=== PATIENT | male | born 1950 | race Caucasian/White ===

== ENCOUNTER → 2018-10-12 08:27 | Outpatient (CLI) | payer MEDICARE, OTHER, SELFPAY ==
[2018-10-12 10:17] LABS: Alanine Aminotransferase 55 IU/L (21-72); Albumin 4.4 g/dL (3.5-5.0); Albumin Globulin Ratio 1.8 (1.0-2.8); Alkaline Phosphatase 104 U/L (38-126); Aspartate Aminotransferase 40 IU/L (17-59); Bilirubin Total 0.5 mg/dL (0.2-1.3); Bilirubin Unconjugated 0.3 mg/dL (0.0-1.1); Globulin 2.5 g/dL (1.7-4.1); HEMOLYSIS < 15 (0-50); Total Protein 6.9 g/dL (6.3-8.2)
[2018-10-12 15:16] LABS: Hep C Virus Ab w/Reflex Quant NEGATIVE s/c (NEGATIVE)
== END ==
PROVIDERS: PCP Internal Medicine; Visit Provider Internal Medicine
DX: R94.5 Abnormal results of liver function studies (principal)
CPT/HCPCS: 36415; 80076; 86803

== ENCOUNTER → 2019-01-16 14:29 | Outpatient (CLI) | payer MEDICARE, OTHER, SELFPAY ==
--- NOTE | 2019-01-16 | DI.RAD.S_ITS ---
PROCEDURE: XR SHOULDER LT MIN 2V INDICATIONS: LEFT shoulder pain TECHNIQUE: 3 views of the shoulder were acquired. COMPARISON: None. FINDINGS: Bones: No fractures or dislocations. No suspicious bony lesions. Visualized ribs appear intact. There is moderate acromioclavicular and glenohumeral joint degeneration. Soft tissues: No suspicious soft tissue calcifications. IMPRESSION: Moderate degenerative changes. Dictated by: Kevin Saldaña M.D. on 01/16/2019 at 17:24 Approved by: Kevin Saldaña M.D. on 01/16/2019 at 17:25
== END ==
PROVIDERS: Family Provider Internal Medicine; PCP Internal Medicine; Visit Provider Internal Medicine
DX: M25.512 Pain in left shoulder (principal); M19.012 Primary osteoarthritis, left shoulder
CPT/HCPCS: 73030

== ENCOUNTER → 2019-02-09 08:36 | Outpatient (CLI) | payer MEDICARE, OTHER, SELFPAY ==
--- NOTE | 2019-02-09 | DI.RAD.S_ITS ---
PROCEDURE: XR HAND LT 2V INDICATIONS: POLYARTHRITIS TECHNIQUE: 2 views of the hand(s) acquired. COMPARISON: None. FINDINGS: Bones: No fractures or dislocations. Carpal bones are normally aligned. No suspicious bony lesions. Bone mineralization may be decreased. Moderate to severe degenerative changes are present involving the left hand, most pronounced involving the basal joint of the thumb and the distal interphalangeal joint of the index finger. Bony remodeling and prominent lateral osteophytes with associated degenerative cystic change are present. There is a rounded ossific/calcific density identified at the tip of the ulnar styloid process, compatible with old injury. No definitive osseous erosions are appreciated. Soft tissues: No suspicious soft tissue calcifications. IMPRESSION: Moderate to severe degenerative changes of the left hand are most pronounced involving the thumb and index finger as described. Findings are most compatible with osteoarthritis. Dictated by: Dirk Moise M.D. on 02/09/2019 at 11:47 Approved by: Dirk Moise M.D. on 02/09/2019 at 11:48
--- NOTE | 2019-02-09 | DI.RAD.S_ITS ---
PROCEDURE: XR HAND RT 2V INDICATIONS: POLYARTHRITIS TECHNIQUE: 2 views of the hand(s) acquired. COMPARISON: None. FINDINGS: Bones: No fractures or dislocations. Carpal bones are normally aligned. No suspicious bony lesions. Bone mineralization appears to be within normal limits. There are moderate degenerative changes noted involving the metacarpal phalangeal and interphalangeal joints of the hand. The degree of degenerative changes are more prominent involving the distal interphalangeal joints. Additionally, there are degenerative changes involving the basal joint of the thumb. Widening of the scapholunate joint is noted. A small rounded ossific such calcific density is identified along the dorsal aspect of the proximal carpal row on the lateral view, suggesting an old triquetral fracture. No definite osseous erosions are appreciated. Soft tissues: No suspicious soft tissue calcifications. IMPRESSION: 1. Moderate degenerative changes of the right hand are most pronounced involving the distal interphalangeal joints, most suggestive of osteoarthritis. 2. 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 Dictated by: Dirk Moise M.D. on 02/09/2019 at 11:45 Approved by: Dirk Moise M.D. on 02/09/2019 at 11:46
[2019-02-09 09:35] LABS: Erythrocyte Sedimentation Rate 1 MM/HR (0-15)
[2019-02-09 09:37] LABS: B Type Natriuretic Peptide < 100 (<100)
[2019-02-09 09:53] LABS: C-Reactive Protein Quant 0.7 mg/dL (<1.0); Rheumatoid Factor 10.4 IU/mL (<12.0)
[2019-02-11 16:36] LABS: ANA Screen, IFA Negative (Negative)
== END ==
PROVIDERS: PCP Internal Medicine; Visit Provider Internal Medicine
DX: M13.0 Polyarthritis, unspecified (principal)
CPT/HCPCS: 36415; 73120; 83880; 85651; 86038; 86140; 86430

== ENCOUNTER 2019-04-07 09:45 | Outpatient (RCR) | payer MEDICARE, OTHER, SELFPAY ==
--- NOTE | 2019-03-02 14:35 | PT.OIE ---
Current Diagnoses Primary osteoarthritis, left shoulder (03/02/19) Provider Visit Care Team Role Provider Type Ciro Foster MD Attending Provider Physician Primary Care Provider Specialty: Internal Medicine Address: [address] [place] [address], [facility] Email: Physical Therapy Initial Evaluation PT-OP-A Visit Information Start: 03/03/19 09:12 Freq: Status: Active Protocol: Document 03/02/19 14:35 RCC (Rec: 03/03/19 11:00 RCC [email or web address]) Out-Patient Physical Therapy Visit Information Visit Information Visit Type Initial Evaluation Visit Start Time 14:35 Visit Stop Time 15:15 Total Visit Minutes 40 Visit Number 1 Number of RIFLE CASE REPAIRER Visits 0 Evaluation Information Evaluation Date 03/02/19 PT-OP-B Current Condition Start: 03/03/19 09:12 Freq: Status: Active Protocol: Document 03/02/19 14:35 RCC (Rec: 03/03/19 11:00 RCC [email or web address]) Current Condition History of Current Condition Onset Date Winter 2017 Current Complaints L shoulder pain, B hand pain History of Current Condition Pt is a 68 y/o male presenting to physical therapy with a c/ o L shoulder pain, onset in the winter of unknown reason (denies any EMBER). Pt states that overhead activity is challenging, typically his L shoulder is more stiff in the morning compared to the afternoon and evening. He is taking Aleve which does help with pain. His hands also flare up on him occasionally, bilateral pain in the thumb region he states mostly when working with his hands a lot. 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 Radiograph of L shoulder showed moderate AC and GH joint degeneration. 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 L hand howed moderate to severe degenerative changes of the L hand most pronounced at the tumb and index (basal joint of thumb and distal IP joint of index finger), most compatible with OA. Pt would like to address his L shoulder, as this is the most limiting at this time. Treatment Goals Patient/Caregiver Goals decrease pain, improve ROM and overall UE function, be able to play golf Current Functional Impairments (Reported) Functional Limitations- Recreation/ has not played golf due to Hobbies pain in L shoulder PT-OP-C Subjective Start: 03/03/19 09:12 Freq: Status: Active Protocol: Document 03/02/19 14:35 RCC (Rec: 03/03/19 11:00 RCC [email or web address]) OP-PT Subjective Patient Comments Patient Comments Hands are better, no longer flared up with L shoulder has been about the same for months. Patient Reported Progress Same Patient Questionnaires Quick Dash- Upper Extremity Quick Dash UE Score 31.81 Quick Dash UE Impairment 20 to 39% Impaired (Score 20- 39) OP-PT Pain Assessment Location L anterior and superior shoulder Intensity 4 Scale Used Numeric (1 - 10) Description Aching Tightness With Movement Frequency Intermittent Pain Aggravating Factors Lifting Pain Alleviating Factors Medication Home Pain Medication Use Pain Medications Used Yes: OTC Aleve PRN PT-OP-F Manual Assessment Start: 03/03/19 09:12 Freq: Status: Active Protocol: Document 03/02/19 14:35 RCC (Rec: 03/03/19 13:20 [facility] [email or web address]) Manual Assessments Soft Tissue Assessment Soft Tissue Mobility Assessment moderate tone upper trapezius bilaterally; mild tone R teres minor, infraspinatus Joint Mobility Assessment Joint Mobility Assessment hypomobile GH joint on the L with inferior and posterior glides PT-OP-H Neuro Start: 03/03/19 09:12 Freq: Status: Active Protocol: Document 03/02/19 14:35 RCC (Rec: 03/03/19 13:20 RCC [email or web address]) Sensation Evaluation Gross Sensation Gross Sensation WNL Deep Tendon Reflex & Clonus Assessment Deep Tendon Reflex Bilateral Tricep Deep Tendon Reflex 1+ Diminished Bilateral Brachioradialis Deep Tendon Reflex 2+ Normal Bilateral Bicep Deep Tendon Reflex 2+ Normal PT-OP-J Posture/Palpation/Skin Start: 03/03/19 09:12 Freq: Status: Active Protocol: Document 03/02/19 14:35 RCC (Rec: 03/03/19 13:20 RCC [email or web address]) Posture Evaluation Comments Posture Comments moderate rounded shoulders, flattened cervical spine, thoracic kyphosis (mild increase) PT-OP-K Range of Motion Start: 03/03/19 09:12 Freq: Status: Active Protocol: Document 03/02/19 14:35 RCC (Rec: 03/03/19 13:20 RCC [email or web address]) Shoulder Goniometric Range of Motion Shoulder Measured in Degrees Right Active Testing Position Sitting Flexion 160 Abduction 170 External Rotation at 90 degrees 90 Abduction Internal Rotation 67 Left Active Testing Position Sitting Flexion 160 Abduction 160 External Rotation at 90 degrees 80 Abduction Internal Rotation 60 PT-OP-L Special Tests Start: 03/03/19 09:12 Freq: Status: Active Protocol: Document 03/02/19 14:35 RCC (Rec: 03/03/19 13:20 RCC [email or web address]) Special Tests Cervical Spine Special Tests Foraminal Compression Test Results negative B Spurling's Test Test Results negative B Shoulder Special Tests Drop Arm Rotator Cuff Test Results negative B Empty Can Test Results negative B Lift-Off Rotator Cuff Test Results negative B Ibrahim John Impingement Test Results positive L Hornblowers Sign Test Results negative B Load and Shift Test Results negative B PT-OP-M Strength Start: 03/03/19 09:12 Freq: Status: Active Protocol: Document 03/02/19 14:35 RCC (Rec: 03/03/19 13:20 RCC [email or web address]) Shoulder Strength Shoulder Manual Muscle Testing Right Flexion 4+ Good+ Abduction (C5) 4+ Good+ External Rotation 5 Normal Internal Rotation 5 Normal Left Flexion 4 Good Abduction (C5) 4 Good External Rotation 4+ Good+ Internal Rotation 5 Normal Elbow/Forearm Strength Elbow and Forearm Manual Muscle Testing Right Flexion (C6) 5 Normal Extension (C7) 5 Normal Left Flexion (C6) 5 Normal Extension (C7) 5 Normal Hand Director Of Architecture/Pinch Strength Hand Dominance Hand Dominance Right Hand Strength Right Director Of Architecture (lbs) 46 Left Director Of Architecture (lbs) 42 PT-OP-Q Treatments Start: 03/03/19 09:12 Freq: Status: Active Protocol: Document 03/02/19 14:35 RCC (Rec: 03/03/19 13:20 RCC [email or web address]) Therapeutic Exercises Sitting Exercises scapular retraction Sitting Exercise Name scapular retraction with chin tuck Side bilateral Comments 5-10 sec hold for postural positioning Standing Exercises Rows Side bilateral Resistance L1 Reps/Minutes x12 Comments in doorway, tactile cuing for UT inhibition ER Side bilateral Resistance L1 Reps/Minutes x10 Comments tactile cuing PT-OP-T Assessment and Plan Start: 03/03/19 09:12 Freq: Status: Active Protocol: Document 03/02/19 14:35 [facility] (Rec: 03/03/19 13:29 [facility] [email or web address]) Physical Therapy Assessment Rehab Potential Rehabilitation Potential Good Evaluation Complexity Number of Personal Factors/Comorbidities 0 Number of Body Systems Impaired 3 Clinical Presentation at Evaluation Stable Impairments Impairments Functional Activities Pain Posture ROM Soft Tissue Mobility Strength Goals Recreational and work tasks Impairment unable to golf Biodiesel Engineering Manager Goal (LTG) Pt will return to golf and work related tasks with 1/10 or less pain in L shoulder prior to d/c. LTG Duration 8 weeks L shoulder ROM Impairment L shoulder AROM [facility] Goal (LTG) L shoulder AROM abduction to 170 deg, IR to 65 deg, and ER to 90 deg prior to d/c. LTG Duration 8 weeks UE strength Impairment weakness in bilateral shoulders, L>R Short Term Goal (STG) 4+/5 or greater with shoulder flexion, abduction, IR and ER bilaterally with manual muscle testing. STG Duration 4 weeks [facility] Goal (LTG) 5/5 rated strength with shoulder flexion, abduction, IR and ER bilaterally with manual muscle testing. LTG Duration 8 weeks Quick DASH Impairment Quick DASH disability score 31 .81 Short Term Goal (STG) pt will have disability score of 20 or less on the Quick DASH to demonstrate improvements with functional use of LUE. STG Duration 4 weeks Biodiesel Engineering Manager Goal (LTG) pt will have disability score of 12 or less on the Quick DASH to demonstrate improvements with functional use of LUE. LTG Duration 8 weeks Assessment Summary Assessment Pt presents with signs and symptoms consistent with OA of the L shoulder, along with impaired scapulohumeral rhythm and (+) Ibrahim-John testing on the L potentially indicating impingement syndrome. No suspected rotator cuff tear at this time. 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 Pt is a good candidate for physical therapy to progress his ROM, strength, decrease his pain with work and recreational activities, and to promote improved overall tolerance with functional activities in regards to his UEs. Physical Therapy Plan Frequency and Duration Frequency of Treatment 2x/Week Duration of Treatment 8 weeks Plan of Care Start Date 03/02/19 Plan of Care End Date 04/27/19 Therapeutic Interventions Therapeutic Interventions Home Exercise Program Joint Mobilizations Manual Therapy Neuromuscular Re-education Soft Tissue Mobilization Taping Therapeutic Activities Therapeutic Exercises Modalities Cold Pack/Ice Massage Electric Stimulation Hot Packs Ultrasound Next Visit Focus/Plan Next Note Type Treatment Note Next Visit Plan resisted IR, shoulder extension, supine punches and wall [id number] (for serratus training). Shoulder ananya's for abduction/ scaption.
--- NOTE | 2019-03-02 14:35 | PT.OPPOC ---
Current Diagnoses Primary osteoarthritis, left shoulder (03/02/19) Provider Visit Care Team Role Provider Type Ciro Foster MD Attending Provider Physician Primary Care Provider Specialty: Internal Medicine Address: [address] [place] [address], [id number] Email: Plan Of Care PT-OP-T Assessment and Plan Start: 03/03/19 09:12 Freq: Status: Active Protocol: Document 03/02/19 14:35 RCC (Rec: 03/03/19 13:29 RCC [email or web address]) Physical Therapy Assessment Rehab Potential Rehabilitation Potential Good Evaluation Complexity Number of Personal Factors/Comorbidities 0 Number of Body Systems Impaired 3 Clinical Presentation at Evaluation Stable Impairments Impairments Functional Activities Pain Posture ROM Soft Tissue Mobility Strength Goals Recreational and work tasks Impairment unable to golf Acidizer Goal (LTG) Pt will return to golf and work related tasks with 1/10 or less pain in L shoulder prior to d/c. LTG Duration 8 weeks L shoulder ROM Impairment L shoulder AROM [facility] Goal (LTG) L shoulder AROM abduction to 170 deg, IR to 65 deg, and ER to 90 deg prior to d/c. LTG Duration 8 weeks UE strength Impairment weakness in bilateral shoulders, L>R Short Term Goal (STG) 4+/5 or greater with shoulder flexion, abduction, IR and ER bilaterally with manual muscle testing. STG Duration 4 weeks Acidizer Goal (LTG) 5/5 rated strength with shoulder flexion, abduction, IR and ER bilaterally with manual muscle testing. LTG Duration 8 weeks Quick DASH Impairment Quick DASH disability score 31 .81 Short Term Goal (STG) pt will have disability score of 20 or less on the Quick DASH to demonstrate improvements with functional use of LUE. STG Duration 4 weeks Acidizer Goal (LTG) pt will have disability score of 12 or less on the Quick DASH to demonstrate improvements with functional use of LUE. LTG Duration 8 weeks Assessment Summary Assessment Pt presents with signs and symptoms consistent with OA of the L shoulder, along with impaired scapulohumeral rhythm and (+) Ibrahim-John testing on the L potentially indicating impingement syndrome. No suspected rotator cuff tear at this time. 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 Pt is a good candidate for physical therapy to progress his ROM, strength, decrease his pain with work and recreational activities, and to promote improved overall tolerance with functional activities in regards to his UEs. Physical Therapy Plan Frequency and Duration Frequency of Treatment 2x/Week Duration of Treatment 8 weeks Plan of Care Start Date 03/02/19 Plan of Care End Date 04/27/19 Therapeutic Interventions Therapeutic Interventions Home Exercise Program Joint Mobilizations Manual Therapy Neuromuscular Re-education Soft Tissue Mobilization Taping Therapeutic Activities Therapeutic Exercises Modalities Cold Pack/Ice Massage Electric Stimulation Hot Packs Ultrasound Next Visit Focus/Plan Next Note Type Treatment Note Next Visit Plan resisted IR, shoulder extension, supine punches and wall [id number] (for serratus training). Shoulder ananya's for abduction/ scaption. Plan of Care Dates Plan of Care Start Date 03/02/19 Plan of Care End Date 04/27/19 Please Sign and Return: I have reviewed this Plan of Care and certify that the skilled therapy services above are required to meet the patient?s needs. Physician Signature Date Printed Name and Credentials Clinical Instructor Signature Printed Name and Credentials
--- NOTE | 2019-03-07 14:12 | PT.OTN ---
Current Diagnoses Primary osteoarthritis, left shoulder (03/07/19) Physical Therapy Treatment Note PT-OP-A Visit Information Start: 03/03/19 09:12 Freq: Status: Active Protocol: Document 03/07/19 13:57 SA (Rec: 03/07/19 14:10 SA [email or web address]) Out-Patient Physical Therapy Visit Information Visit Information Visit Type Treatment Note Visit Start Time 13:00 Visit Stop Time 13:45 Total Visit Minutes 45 Visit Number 2 Number of SHAREMILKER Visits 1 PT-OP-B Current Condition Start: 03/03/19 09:12 Freq: Status: Active Protocol: Document 03/02/19 14:35 RCC (Rec: 03/03/19 11:00 RCC [email or web address]) Current Condition History of Current Condition Onset Date Winter 2017 Current Complaints L shoulder pain, B hand pain History of Current Condition Pt is a 68 y/o male presenting to physical therapy with a c/ o L shoulder pain, onset in the winter of unknown reason (denies any EMBER). Pt states that overhead activity is challenging, typically his L shoulder is more stiff in the morning compared to the afternoon and evening. He is taking Aleve which does help with pain. His hands also flare up on him occasionally, bilateral pain in the thumb region he states mostly when working with his hands a lot. 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 Radiograph of L shoulder showed moderate AC and GH joint degeneration. 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 L hand howed moderate to severe degenerative changes of the L hand most pronounced at the tumb and index (basal joint of thumb and distal IP joint of index finger), most compatible with OA. Pt would like to address his L shoulder, as this is the most limiting at this time. Treatment Goals Patient/Caregiver Goals decrease pain, improve ROM and overall UE function, be able to play golf Current Functional Impairments (Reported) Functional Limitations- Recreation/ has not played golf due to Hobbies pain in L shoulder PT-OP-C Subjective Start: 03/03/19 09:12 Freq: Status: Active Protocol: Document 03/07/19 14:10 SA (Rec: 03/07/19 14:12 SA [email or web address]) OP-PT Subjective Patient Comments Patient Comments Pt reports continued pain/ achiness but tolerated initial treatment well. Doing 2 exercsies for HEP that was provided last visit and tolerating those well. Patient Reported Progress Same PT-OP-F Manual Assessment Start: 03/03/19 09:12 Freq: Status: Active Protocol: Document 03/02/19 14:35 RCC (Rec: 03/03/19 13:20 RCC [email or web address]) Manual Assessments Soft Tissue Assessment Soft Tissue Mobility Assessment moderate tone upper trapezius bilaterally; mild tone R teres minor, infraspinatus Joint Mobility Assessment Joint Mobility Assessment hypomobile GH joint on the L with inferior and posterior glides PT-OP-H Neuro Start: 03/03/19 09:12 Freq: Status: Active Protocol: Document 03/02/19 14:35 RCC (Rec: 03/03/19 13:20 RCC [email or web address]) Sensation Evaluation Gross Sensation Gross Sensation WNL Deep Tendon Reflex & Clonus Assessment Deep Tendon Reflex Bilateral Tricep Deep Tendon Reflex 1+ Diminished Bilateral Brachioradialis Deep Tendon Reflex 2+ Normal Bilateral Bicep Deep Tendon Reflex 2+ Normal PT-OP-J Posture/Palpation/Skin Start: 03/03/19 09:12 Freq: Status: Active Protocol: Document 03/02/19 14:35 RCC (Rec: 03/03/19 13:20 RCC [email or web address]) Posture Evaluation Comments Posture Comments moderate rounded shoulders, flattened cervical spine, thoracic kyphosis (mild increase) PT-OP-K Range of Motion Start: 03/03/19 09:12 Freq: Status: Active Protocol: Document 03/02/19 14:35 RCC (Rec: 03/03/19 13:20 RCC [email or web address]) Shoulder Goniometric Range of Motion Shoulder Measured in Degrees Right Active Testing Position Sitting Flexion 160 Abduction 170 External Rotation at 90 degrees 90 Abduction Internal Rotation 67 Left Active Testing Position Sitting Flexion 160 Abduction 160 External Rotation at 90 degrees 80 Abduction Internal Rotation 60 PT-OP-L Special Tests Start: 03/03/19 09:12 Freq: Status: Active Protocol: Document 03/02/19 14:35 RCC (Rec: 03/03/19 13:20 RCC [email or web address]) Special Tests Cervical Spine Special Tests Foraminal Compression Test Results negative B Spurling's Test Test Results negative B Shoulder Special Tests Drop Arm Rotator Cuff Test Results negative B Empty Can Test Results negative B Lift-Off Rotator Cuff Test Results negative B Ibrahim John Impingement Test Results positive L Hornblowers Sign Test Results negative B Load and Shift Test Results negative B PT-OP-M Strength Start: 03/03/19 09:12 Freq: Status: Active Protocol: Document 03/02/19 14:35 RCC (Rec: 03/03/19 13:20 RCC [email or web address]) Shoulder Strength Shoulder Manual Muscle Testing Right Flexion 4+ Good+ Abduction (C5) 4+ Good+ External Rotation 5 Normal Internal Rotation 5 Normal Left Flexion 4 Good Abduction (C5) 4 Good External Rotation 4+ Good+ Internal Rotation 5 Normal Elbow/Forearm Strength Elbow and Forearm Manual Muscle Testing Right Flexion (C6) 5 Normal Extension (C7) 5 Normal Left Flexion (C6) 5 Normal Extension (C7) 5 Normal Hand Advertising Columnist/Pinch Strength Hand Dominance Hand Dominance Right Hand Strength Right Advertising Columnist (lbs) 46 Left Advertising Columnist (lbs) 42 PT-OP-Q Treatments Start: 03/03/19 09:12 Freq: Status: Active Protocol: Document 03/07/19 13:57 SA (Rec: 03/07/19 14:10 SA [email or web address]) Therapeutic Exercises Supine Exercises Pec stretch Side bilateral Reps/Minutes 30-60 x 3 Comments manual Serratus punch Side left Resistance 0# Reps/Minutes 15 x Comments tactile cues Sitting Exercises Shldr Pulleys Sitting Exercise Name Scaption/Abduction Side bilateral Reps/Minutes 3 min scapular retraction Sitting Exercise Name scapular retraction with chin tuck Side bilateral Comments 5-10 sec hold for postural positioning Standing Exercises Shld EXT Side left Resistance TB LV 2 Reps/Minutes 20x Postural wall stretch Side bilateral Reps/Minutes 15 x 3 Scapular wall/ball roll Side left Reps/Minutes 2 min Comments tactile cues Rows Side bilateral Resistance TB LV 2 Reps/Minutes 20x Comments in doorway, tactile cuing for UT inhibition ER Side bilateral Resistance TB LV 2 Reps/Minutes 20x Comments tactile cuing Manual Therapy Treatment Soft Tissue Mobilization UT/levator/pec Body Location Left Mobilization Type Myofascial Release Rolling Sustained Pressure Intensity/Depth Moderate Body Position Hooklying Comments manual B pec stretching PT-OP-R Modalities Start: 03/03/19 09:12 Freq: Status: Active Protocol: Document 03/07/19 14:10 SA (Rec: 03/07/19 14:10 SA [email or web address]) Hot Pack/Cold Pack Treatment Hot Pack Location L shoulder Patient Position Hooklying Treatment Duration (minutes) 10 Patient Tolerance Good PT-OP-T Assessment and Plan Start: 03/03/19 09:12 Freq: Status: Active Protocol: Document 03/07/19 13:57 SA (Rec: 03/07/19 14:10 SA [email or web address]) Physical Therapy Assessment Assessment Summary Assessment Focused on scapular strengthening and postural correction with STM to UTs/ levator/pecs to decrease tightness and compensatory movement pattern. Postural wall stretch given to add to HEP. Physical Therapy Plan Next Visit Focus/Plan Next Note Type Treatment Note Next Visit Plan resisted IR, shoulder extension, supine punches and wall [id number] (for serratus training). Shoulder ananya's for abduction/ scaption.
--- NOTE | 2019-03-10 10:30 | PT.OTN ---
Current Diagnoses Primary osteoarthritis, left shoulder (03/10/19) Physical Therapy Treatment Note PT-OP-A Visit Information Start: 03/03/19 09:12 Freq: Status: Active Protocol: Document 03/10/19 10:30 [facility] (Rec: 03/10/19 13:17 [facility] [email or web address]) Out-Patient Physical Therapy Visit Information Visit Information Visit Type Treatment Note Visit Start Time 10:30 Visit Stop Time 11:13 Total Visit Minutes 43 Visit Number 3 Number of GROUP DIRECTOR EXPERIENCE Visits 0 Evaluation Information Evaluation Date 03/02/19 PT-OP-B Current Condition Start: 03/03/19 09:12 Freq: Status: Active Protocol: Document 03/02/19 14:35 [facility] (Rec: 03/03/19 11:00 [facility] [email or web address]) Current Condition History of Current Condition Onset Date Winter 2017 Current Complaints L shoulder pain, B hand pain History of Current Condition Pt is a 68 y/o male presenting to physical therapy with a c/ o L shoulder pain, onset in the winter of unknown reason (denies any EMBER). Pt states that overhead activity is challenging, typically his L shoulder is more stiff in the morning compared to the afternoon and evening. He is taking Aleve which does help with pain. His hands also flare up on him occasionally, bilateral pain in the thumb region he states mostly when working with his hands a lot. 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 Radiograph of L shoulder showed moderate AC and GH joint degeneration. 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 L hand howed moderate to severe degenerative changes of the L hand most pronounced at the tumb and index (basal joint of thumb and distal IP joint of index finger), most compatible with OA. Pt would like to address his L shoulder, as this is the most limiting at this time. Treatment Goals Patient/Caregiver Goals decrease pain, improve ROM and overall UE function, be able to play golf Current Functional Impairments (Reported) Functional Limitations- Recreation/ has not played golf due to Hobbies pain in L shoulder PT-OP-C Subjective Start: 03/03/19 09:12 Freq: Status: Active Protocol: Document 03/10/19 10:30 RCC (Rec: 03/10/19 13:17 [facility] [email or web address]) OP-PT Subjective Patient Comments Patient Comments Pt with no new complaints. He is doing his HEP as intended. PT-OP-F Manual Assessment Start: 03/03/19 09:12 Freq: Status: Active Protocol: Document 03/02/19 14:35 [facility] (Rec: 03/03/19 13:20 [facility] [email or web address]) Manual Assessments Soft Tissue Assessment Soft Tissue Mobility Assessment moderate tone upper trapezius bilaterally; mild tone R teres minor, infraspinatus Joint Mobility Assessment Joint Mobility Assessment hypomobile GH joint on the L with inferior and posterior glides PT-OP-H Neuro Start: 03/03/19 09:12 Freq: Status: Active Protocol: Document 03/02/19 14:35 [facility] (Rec: 03/03/19 13:20 [facility] [email or web address]) Sensation Evaluation Gross Sensation Gross Sensation WNL Deep Tendon Reflex & Clonus Assessment Deep Tendon Reflex Bilateral Tricep Deep Tendon Reflex 1+ Diminished Bilateral Brachioradialis Deep Tendon Reflex 2+ Normal Bilateral Bicep Deep Tendon Reflex 2+ Normal PT-OP-J Posture/Palpation/Skin Start: 03/03/19 09:12 Freq: Status: Active Protocol: Document 03/02/19 14:35 [facility] (Rec: 03/03/19 13:20 [facility] [email or web address]) Posture Evaluation Comments Posture Comments moderate rounded shoulders, flattened cervical spine, thoracic kyphosis (mild increase) PT-OP-K Range of Motion Start: 03/03/19 09:12 Freq: Status: Active Protocol: Document 03/02/19 14:35 [facility] (Rec: 03/03/19 13:20 [facility] [email or web address]) Shoulder Goniometric Range of Motion Shoulder Measured in Degrees Right Active Testing Position Sitting Flexion 160 Abduction 170 External Rotation at 90 degrees 90 Abduction Internal Rotation 67 Left Active Testing Position Sitting Flexion 160 Abduction 160 External Rotation at 90 degrees 80 Abduction Internal Rotation 60 PT-OP-L Special Tests Start: 03/03/19 09:12 Freq: Status: Active Protocol: Document 03/02/19 14:35 [facility] (Rec: 03/03/19 13:20 [facility] [email or web address]) Special Tests Cervical Spine Special Tests Foraminal Compression Test Results negative B Spurling's Test Test Results negative B Shoulder Special Tests Drop Arm Rotator Cuff Test Results negative B Empty Can Test Results negative B Lift-Off Rotator Cuff Test Results negative B Ibrahim John Impingement Test Results positive L Hornblowers Sign Test Results negative B Load and Shift Test Results negative B PT-OP-M Strength Start: 03/03/19 09:12 Freq: Status: Active Protocol: Document 03/02/19 14:35 [facility] (Rec: 03/03/19 13:20 [facility] [email or web address]) Shoulder Strength Shoulder Manual Muscle Testing Right Flexion 4+ Good+ Abduction (C5) 4+ Good+ External Rotation 5 Normal Internal Rotation 5 Normal Left Flexion 4 Good Abduction (C5) 4 Good External Rotation 4+ Good+ Internal Rotation 5 Normal Elbow/Forearm Strength Elbow and Forearm Manual Muscle Testing Right Flexion (C6) 5 Normal Extension (C7) 5 Normal Left Flexion (C6) 5 Normal Extension (C7) 5 Normal Hand Medical Office Assistant/Pinch Strength Hand Dominance Hand Dominance Right Hand Strength Right Medical Office Assistant (lbs) 46 Left Medical Office Assistant (lbs) 42 PT-OP-Q Treatments Start: 03/03/19 09:12 Freq: Status: Active Protocol: Document 03/10/19 10:30 RCC (Rec: 03/10/19 13:17 [facility] [email or web address]) Therapeutic Exercises Supine Exercises Serratus punch Side left Resistance 3# Reps/Minutes 15 x Comments tactile cues Sidelying Exercises shoulder abduction Side left Reps/Minutes x10 Comments with manual assist for scapular upward rotation Standing Exercises bent forward rows and extension Standing Exercise Name shoulder extension and rows in bent over position leaning R hand on table Side left Reps/Minutes x10 push up plus Side bilateral Reps/Minutes x10 Manual Therapy Treatment Soft Tissue Mobilization UT/levator/pec Body Location Left Mobilization Type Myofascial Release Rolling Sustained Pressure Intensity/Depth Moderate Body Position Hooklying Comments manual B pec stretching Joint Mobilizations ST Direction superior, lateral Grade III Body Position Sidelying Reps/Duration 5 min GH Direction posterior and inferior Grade III Body Position Hooklying Reps/Duration 6 min Taping L shoulder Type of Tape kinesiotape Skin Inspection intact Comments shoulder impingement protocol PT-OP-R Modalities Start: 03/03/19 09:12 Freq: Status: Active Protocol: Document 03/07/19 14:10 SA (Rec: 03/07/19 14:10 SA [email or web address]) Hot Pack/Cold Pack Treatment Hot Pack Location L shoulder Patient Position Hooklying Treatment Duration (minutes) 10 Patient Tolerance Good PT-OP-T Assessment and Plan Start: 03/03/19 09:12 Freq: Status: Active Protocol: Document 03/10/19 10:30 RCC (Rec: 03/10/19 13:17 RCC [email or web address]) Physical Therapy Assessment Assessment Summary Assessment Pt with slight discomfort with sidelying shoulder abduction on the L, but pain absent with manual facilitation of scapula. He tolerated serratus strengthening without pain. Physical Therapy Plan Frequency and Duration Frequency of Treatment 2x/Week Duration of Treatment 8 weeks Plan of Care Start Date 03/02/19 Plan of Care End Date 04/27/19 Next Visit Focus/Plan Next Note Type Treatment Note Next Visit Plan body blade, resisted IR
--- NOTE | 2019-03-15 16:05 | PT.OTN ---
Current Diagnoses Primary osteoarthritis, left shoulder (03/15/19) Physical Therapy Treatment Note PT-OP-A Visit Information Start: 03/03/19 09:12 Freq: Status: Active Protocol: Document 03/15/19 16:05 RCC (Rec: 03/15/19 17:58 [facility] [email or web address]) Out-Patient Physical Therapy Visit Information Visit Information Visit Type Treatment Note Visit Start Time 16:05 Visit Stop Time 16:45 Total Visit Minutes 40 Visit Number 4 Number of HOG BUYER Visits 0 Evaluation Information Evaluation Date 03/02/19 PT-OP-B Current Condition Start: 03/03/19 09:12 Freq: Status: Active Protocol: Document 03/02/19 14:35 RCC (Rec: 03/03/19 11:00 RCC [email or web address]) Current Condition History of Current Condition Onset Date Winter 2017 Current Complaints L shoulder pain, B hand pain History of Current Condition Pt is a 68 y/o male presenting to physical therapy with a c/ o L shoulder pain, onset in the winter of unknown reason (denies any EMBER). Pt states that overhead activity is challenging, typically his L shoulder is more stiff in the morning compared to the afternoon and evening. He is taking Aleve which does help with pain. His hands also flare up on him occasionally, bilateral pain in the thumb region he states mostly when working with his hands a lot. 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 Radiograph of L shoulder showed moderate AC and GH joint degeneration. 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 L hand howed moderate to severe degenerative changes of the L hand most pronounced at the tumb and index (basal joint of thumb and distal IP joint of index finger), most compatible with OA. Pt would like to address his L shoulder, as this is the most limiting at this time. Treatment Goals Patient/Caregiver Goals decrease pain, improve ROM and overall UE function, be able to play golf Current Functional Impairments (Reported) Functional Limitations- Recreation/ has not played golf due to Hobbies pain in L shoulder PT-OP-C Subjective Start: 03/03/19 09:12 Freq: Status: Active Protocol: Document 03/15/19 16:05 [facility] (Rec: 03/15/19 17:58 [facility] [email or web address]) OP-PT Subjective Patient Comments Patient Comments Pt reports that the kinesiotape appears to have helped, he was sleeping better the past week and less pain with activities. PT-OP-F Manual Assessment Start: 03/03/19 09:12 Freq: Status: Active Protocol: Document 03/02/19 14:35 [facility] (Rec: 03/03/19 13:20 [facility] [email or web address]) Manual Assessments Soft Tissue Assessment Soft Tissue Mobility Assessment moderate tone upper trapezius bilaterally; mild tone R teres minor, infraspinatus Joint Mobility Assessment Joint Mobility Assessment hypomobile GH joint on the L with inferior and posterior glides PT-OP-H Neuro Start: 03/03/19 09:12 Freq: Status: Active Protocol: Document 03/02/19 14:35 [facility] (Rec: 03/03/19 13:20 [facility] [email or web address]) Sensation Evaluation Gross Sensation Gross Sensation WNL Deep Tendon Reflex & Clonus Assessment Deep Tendon Reflex Bilateral Tricep Deep Tendon Reflex 1+ Diminished Bilateral Brachioradialis Deep Tendon Reflex 2+ Normal Bilateral Bicep Deep Tendon Reflex 2+ Normal PT-OP-J Posture/Palpation/Skin Start: 03/03/19 09:12 Freq: Status: Active Protocol: Document 03/02/19 14:35 [facility] (Rec: 03/03/19 13:20 [facility] [email or web address]) Posture Evaluation Comments Posture Comments moderate rounded shoulders, flattened cervical spine, thoracic kyphosis (mild increase) PT-OP-K Range of Motion Start: 03/03/19 09:12 Freq: Status: Active Protocol: Document 03/02/19 14:35 [facility] (Rec: 03/03/19 13:20 [facility] [email or web address]) Shoulder Goniometric Range of Motion Shoulder Measured in Degrees Right Active Testing Position Sitting Flexion 160 Abduction 170 External Rotation at 90 degrees 90 Abduction Internal Rotation 67 Left Active Testing Position Sitting Flexion 160 Abduction 160 External Rotation at 90 degrees 80 Abduction Internal Rotation 60 PT-OP-L Special Tests Start: 03/03/19 09:12 Freq: Status: Active Protocol: Document 03/02/19 14:35 [facility] (Rec: 03/03/19 13:20 [facility] [email or web address]) Special Tests Cervical Spine Special Tests Foraminal Compression Test Results negative B Spurling's Test Test Results negative B Shoulder Special Tests Drop Arm Rotator Cuff Test Results negative B Empty Can Test Results negative B Lift-Off Rotator Cuff Test Results negative B Ibrahim John Impingement Test Results positive L Hornblowers Sign Test Results negative B Load and Shift Test Results negative B PT-OP-M Strength Start: 03/03/19 09:12 Freq: Status: Active Protocol: Document 03/02/19 14:35 [facility] (Rec: 03/03/19 13:20 [facility] [email or web address]) Shoulder Strength Shoulder Manual Muscle Testing Right Flexion 4+ Good+ Abduction (C5) 4+ Good+ External Rotation 5 Normal Internal Rotation 5 Normal Left Flexion 4 Good Abduction (C5) 4 Good External Rotation 4+ Good+ Internal Rotation 5 Normal Elbow/Forearm Strength Elbow and Forearm Manual Muscle Testing Right Flexion (C6) 5 Normal Extension (C7) 5 Normal Left Flexion (C6) 5 Normal Extension (C7) 5 Normal Hand Web Content Specialist/Pinch Strength Hand Dominance Hand Dominance Right Hand Strength Right Web Content Specialist (lbs) 46 Left Web Content Specialist (lbs) 42 PT-OP-Q Treatments Start: 03/03/19 09:12 Freq: Status: Active Protocol: Document 03/15/19 16:05 [facility] (Rec: 03/15/19 17:58 [facility] [email or web address]) Therapeutic Exercises Standing Exercises body blade Standing Exercise Name yellow Side left Equipment Used body blade Reps/Minutes 5 min Comments IR/ER, abd/add with arm @ side IR Side left Resistance L2 Reps/Minutes x15 Manual Therapy Treatment Soft Tissue Mobilization UT/levator/pec Body Location Left Mobilization Type Myofascial Release Rolling Sustained Pressure Intensity/Depth Moderate Body Position Hooklying Comments manual B pec stretching Joint Mobilizations ST Direction superior, lateral Grade III Body Position Sidelying Reps/Duration 4 min GH Direction posterior and inferior Grade III Body Position Hooklying Reps/Duration 6 min Taping L shoulder Type of Tape kinesiotape Skin Inspection intact Comments shoulder impingement protocol Manual Techniques PROM Type PROM all planes L shoulder Body Position Supine Reps/Duration x8 min PT-OP-T Assessment and Plan Start: 03/03/19 09:12 Freq: Status: Active Protocol: Document 03/15/19 16:05 [facility] (Rec: 03/15/19 17:58 [facility] [email or web address]) Physical Therapy Assessment Assessment Summary Assessment Pt tolerated resisted IR without c/o pain, but does fatigue with this activity. Pt with improved ability to relax with ST manual therapy, improving the ability to manipulate the scapula. Physical Therapy Plan Frequency and Duration Frequency of Treatment 2x/Week Duration of Treatment 8 weeks Plan of Care Start Date 03/02/19 Plan of Care End Date 04/27/19 Next Visit Focus/Plan Next Note Type Treatment Note Next Visit Plan assess tolerance to SL abduction; education on self Kinesiotape.
--- NOTE | 2019-03-23 11:30 | PT.OTN ---
Current Diagnoses Primary osteoarthritis, left shoulder (03/23/19) Physical Therapy Treatment Note PT-OP-A Visit Information Start: 03/03/19 09:12 Freq: Status: Active Protocol: Document 03/23/19 11:30 [facility] (Rec: 03/23/19 12:24 [facility] [email or web address]) Out-Patient Physical Therapy Visit Information Visit Information Visit Type Treatment Note Visit Start Time 11:30 Visit Stop Time 12:15 Total Visit Minutes 45 Visit Number 5 Number of EQUIPMENT MAINT TECH Visits 0 Evaluation Information Evaluation Date 03/02/19 PT-OP-B Current Condition Start: 03/03/19 09:12 Freq: Status: Active Protocol: Document 03/02/19 14:35 RCC (Rec: 03/03/19 11:00 RCC [email or web address]) Current Condition History of Current Condition Onset Date Winter 2017 Current Complaints L shoulder pain, B hand pain History of Current Condition Pt is a 68 y/o male presenting to physical therapy with a c/ o L shoulder pain, onset in the winter of unknown reason (denies any EMBER). Pt states that overhead activity is challenging, typically his L shoulder is more stiff in the morning compared to the afternoon and evening. He is taking Aleve which does help with pain. His hands also flare up on him occasionally, bilateral pain in the thumb region he states mostly when working with his hands a lot. 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 Radiograph of L shoulder showed moderate AC and GH joint degeneration. 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 L hand howed moderate to severe degenerative changes of the L hand most pronounced at the tumb and index (basal joint of thumb and distal IP joint of index finger), most compatible with OA. Pt would like to address his L shoulder, as this is the most limiting at this time. Treatment Goals Patient/Caregiver Goals decrease pain, improve ROM and overall UE function, be able to play golf Current Functional Impairments (Reported) Functional Limitations- Recreation/ has not played golf due to Hobbies pain in L shoulder PT-OP-C Subjective Start: 03/03/19 09:12 Freq: Status: Active Protocol: Document 03/23/19 11:30 [facility] (Rec: 03/23/19 12:24 [facility] [email or web address]) OP-PT Subjective Patient Comments Patient Comments Pt has noticed that his L shoulder does not hurt as much throughout the day with normal lifting of his arm. PT-OP-F Manual Assessment Start: 03/03/19 09:12 Freq: Status: Active Protocol: Document 03/02/19 14:35 [facility] (Rec: 03/03/19 13:20 [facility] [email or web address]) Manual Assessments Soft Tissue Assessment Soft Tissue Mobility Assessment moderate tone upper trapezius bilaterally; mild tone R teres minor, infraspinatus Joint Mobility Assessment Joint Mobility Assessment hypomobile GH joint on the L with inferior and posterior glides PT-OP-H Neuro Start: 03/03/19 09:12 Freq: Status: Active Protocol: Document 03/02/19 14:35 RCC (Rec: 03/03/19 13:20 RCC [email or web address]) Sensation Evaluation Gross Sensation Gross Sensation WNL Deep Tendon Reflex & Clonus Assessment Deep Tendon Reflex Bilateral Tricep Deep Tendon Reflex 1+ Diminished Bilateral Brachioradialis Deep Tendon Reflex 2+ Normal Bilateral Bicep Deep Tendon Reflex 2+ Normal PT-OP-J Posture/Palpation/Skin Start: 03/03/19 09:12 Freq: Status: Active Protocol: Document 03/02/19 14:35 [facility] (Rec: 03/03/19 13:20 RCC [email or web address]) Posture Evaluation Comments Posture Comments moderate rounded shoulders, flattened cervical spine, thoracic kyphosis (mild increase) PT-OP-K Range of Motion Start: 03/03/19 09:12 Freq: Status: Active Protocol: Document 03/02/19 14:35 [facility] (Rec: 03/03/19 13:20 [facility] [email or web address]) Shoulder Goniometric Range of Motion Shoulder Measured in Degrees Right Active Testing Position Sitting Flexion 160 Abduction 170 External Rotation at 90 degrees 90 Abduction Internal Rotation 67 Left Active Testing Position Sitting Flexion 160 Abduction 160 External Rotation at 90 degrees 80 Abduction Internal Rotation 60 PT-OP-L Special Tests Start: 03/03/19 09:12 Freq: Status: Active Protocol: Document 03/02/19 14:35 RCC (Rec: 03/03/19 13:20 RCC [email or web address]) Special Tests Cervical Spine Special Tests Foraminal Compression Test Results negative B Spurling's Test Test Results negative B Shoulder Special Tests Drop Arm Rotator Cuff Test Results negative B Empty Can Test Results negative B Lift-Off Rotator Cuff Test Results negative B Ibrahim John Impingement Test Results positive L Hornblowers Sign Test Results negative B Load and Shift Test Results negative B PT-OP-M Strength Start: 03/03/19 09:12 Freq: Status: Active Protocol: Document 03/02/19 14:35 [facility] (Rec: 03/03/19 13:20 RCC [email or web address]) Shoulder Strength Shoulder Manual Muscle Testing Right Flexion 4+ Good+ Abduction (C5) 4+ Good+ External Rotation 5 Normal Internal Rotation 5 Normal Left Flexion 4 Good Abduction (C5) 4 Good External Rotation 4+ Good+ Internal Rotation 5 Normal Elbow/Forearm Strength Elbow and Forearm Manual Muscle Testing Right Flexion (C6) 5 Normal Extension (C7) 5 Normal Left Flexion (C6) 5 Normal Extension (C7) 5 Normal Hand Pulp Grinder/Pinch Strength Hand Dominance Hand Dominance Right Hand Strength Right Pulp Grinder (lbs) 46 Left Pulp Grinder (lbs) 42 PT-OP-Q Treatments Start: 03/03/19 09:12 Freq: Status: Active Protocol: Document 03/23/19 11:30 [facility] (Rec: 03/23/19 12:24 [facility] [email or web address]) Therapeutic Exercises Sidelying Exercises shoulder abduction Side left Reps/Minutes x10 Standing Exercises body blade Standing Exercise Name yellow Side left Equipment Used body blade Reps/Minutes 5 min Comments IR/ER, abd/add with arm @ side IR Side left Resistance L2 Reps/Minutes x20 Rows Side bilateral Resistance TB LV 2 Reps/Minutes 20x ER Side bilateral Resistance TB LV 2 Reps/Minutes 20x Comments tactile cuing Manual Therapy Treatment Soft Tissue Mobilization UT/levator/pec Body Location Left Mobilization Type Myofascial Release Rolling Sustained Pressure Intensity/Depth Moderate Body Position Hooklying Comments manual B pec stretching Joint Mobilizations ST Direction superior, lateral Grade III Body Position Sidelying Reps/Duration 6 min GH Direction posterior and inferior Grade III Body Position Hooklying Reps/Duration 6 min Taping L shoulder Type of Tape kinesiotape Skin Inspection intact Comments shoulder impingement protocol Manual Techniques PROM Type PROM all planes L shoulder Body Position Supine Reps/Duration x8 min PT-OP-R Modalities Start: 03/03/19 09:12 Freq: Status: Active Protocol: Document 03/07/19 14:10 SA (Rec: 03/07/19 14:10 SA [email or web address]) Hot Pack/Cold Pack Treatment Hot Pack Location L shoulder Patient Position Hooklying Treatment Duration (minutes) 10 Patient Tolerance Good PT-OP-T Assessment and Plan Start: 03/03/19 09:12 Freq: Status: Active Protocol: Document 03/23/19 11:30 [facility] (Rec: 03/23/19 12:24 RCC [email or web address]) Physical Therapy Assessment Assessment Summary Assessment Pt continues to have weakness with sidelying L shoulder abduction, but no longer painful with impaired joint mobility. Overall, pt is improving but still limited with ROM vs gravity and strength of the L shoulder. Physical Therapy Plan Frequency and Duration Frequency of Treatment 2x/Week Duration of Treatment 8 weeks Plan of Care Start Date 03/02/19 Plan of Care End Date 04/27/19 Next Visit Focus/Plan Next Note Type Treatment Note Next Visit Plan assess pt's ability to K-tape self, handout for education; progress L shoulder strength as tolerated.
--- NOTE | 2019-03-29 09:47 | PT.OTN ---
Current Diagnoses Primary osteoarthritis, left shoulder (03/29/19) Physical Therapy Treatment Note PT-OP-A Visit Information Start: 03/03/19 09:12 Freq: Status: Active Protocol: Document 03/29/19 09:47 RCC (Rec: 03/29/19 12:05 RCC [email or web address]) Out-Patient Physical Therapy Visit Information Visit Information Visit Type Treatment Note Visit Start Time 09:47 Visit Stop Time 10:28 Total Visit Minutes 41 Visit Number 6 Number of SR SOLUTIONS CONSULTANT Visits 0 Evaluation Information Evaluation Date 03/02/19 PT-OP-B Current Condition Start: 03/03/19 09:12 Freq: Status: Active Protocol: Document 03/02/19 14:35 RCC (Rec: 03/03/19 11:00 RCC [email or web address]) Current Condition History of Current Condition Onset Date Winter 2017 Current Complaints L shoulder pain, B hand pain History of Current Condition Pt is a 68 y/o male presenting to physical therapy with a c/ o L shoulder pain, onset in the winter of unknown reason (denies any EMBER). Pt states that overhead activity is challenging, typically his L shoulder is more stiff in the morning compared to the afternoon and evening. He is taking Aleve which does help with pain. His hands also flare up on him occasionally, bilateral pain in the thumb region he states mostly when working with his hands a lot. 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 Radiograph of L shoulder showed moderate AC and GH joint degeneration. 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 L hand howed moderate to severe degenerative changes of the L hand most pronounced at the tumb and index (basal joint of thumb and distal IP joint of index finger), most compatible with OA. Pt would like to address his L shoulder, as this is the most limiting at this time. Treatment Goals Patient/Caregiver Goals decrease pain, improve ROM and overall UE function, be able to play golf Current Functional Impairments (Reported) Functional Limitations- Recreation/ has not played golf due to Hobbies pain in L shoulder PT-OP-C Subjective Start: 03/03/19 09:12 Freq: Status: Active Protocol: Document 03/29/19 09:47 RCC (Rec: 03/29/19 12:05 RCC [email or web address]) OP-PT Subjective Patient Comments Patient Comments Pt feels like the L shoulder is improving and has caught up to the R side with mild pain only, his sleep is improving. PT-OP-F Manual Assessment Start: 03/03/19 09:12 Freq: Status: Active Protocol: Document 03/02/19 14:35 RCC (Rec: 03/03/19 13:20 RCC [email or web address]) Manual Assessments Soft Tissue Assessment Soft Tissue Mobility Assessment moderate tone upper trapezius bilaterally; mild tone R teres minor, infraspinatus Joint Mobility Assessment Joint Mobility Assessment hypomobile GH joint on the L with inferior and posterior glides PT-OP-H Neuro Start: 03/03/19 09:12 Freq: Status: Active Protocol: Document 03/02/19 14:35 RCC (Rec: 03/03/19 13:20 RCC [email or web address]) Sensation Evaluation Gross Sensation Gross Sensation WNL Deep Tendon Reflex & Clonus Assessment Deep Tendon Reflex Bilateral Tricep Deep Tendon Reflex 1+ Diminished Bilateral Brachioradialis Deep Tendon Reflex 2+ Normal Bilateral Bicep Deep Tendon Reflex 2+ Normal PT-OP-J Posture/Palpation/Skin Start: 03/03/19 09:12 Freq: Status: Active Protocol: Document 03/02/19 14:35 RCC (Rec: 03/03/19 13:20 RCC [email or web address]) Posture Evaluation Comments Posture Comments moderate rounded shoulders, flattened cervical spine, thoracic kyphosis (mild increase) PT-OP-K Range of Motion Start: 03/03/19 09:12 Freq: Status: Active Protocol: Document 03/02/19 14:35 RCC (Rec: 03/03/19 13:20 RCC [email or web address]) Shoulder Goniometric Range of Motion Shoulder Measured in Degrees Right Active Testing Position Sitting Flexion 160 Abduction 170 External Rotation at 90 degrees 90 Abduction Internal Rotation 67 Left Active Testing Position Sitting Flexion 160 Abduction 160 External Rotation at 90 degrees 80 Abduction Internal Rotation 60 PT-OP-L Special Tests Start: 03/03/19 09:12 Freq: Status: Active Protocol: Document 03/02/19 14:35 RCC (Rec: 03/03/19 13:20 RCC [email or web address]) Special Tests Cervical Spine Special Tests Foraminal Compression Test Results negative B Spurling's Test Test Results negative B Shoulder Special Tests Drop Arm Rotator Cuff Test Results negative B Empty Can Test Results negative B Lift-Off Rotator Cuff Test Results negative B Ibrahim John Impingement Test Results positive L Hornblowers Sign Test Results negative B Load and Shift Test Results negative B PT-OP-M Strength Start: 03/03/19 09:12 Freq: Status: Active Protocol: Document 03/02/19 14:35 RCC (Rec: 03/03/19 13:20 RCC [email or web address]) Shoulder Strength Shoulder Manual Muscle Testing Right Flexion 4+ Good+ Abduction (C5) 4+ Good+ External Rotation 5 Normal Internal Rotation 5 Normal Left Flexion 4 Good Abduction (C5) 4 Good External Rotation 4+ Good+ Internal Rotation 5 Normal Elbow/Forearm Strength Elbow and Forearm Manual Muscle Testing Right Flexion (C6) 5 Normal Extension (C7) 5 Normal Left Flexion (C6) 5 Normal Extension (C7) 5 Normal Hand Steeple Jack/Pinch Strength Hand Dominance Hand Dominance Right Hand Strength Right Steeple Jack (lbs) 46 Left Steeple Jack (lbs) 42 PT-OP-Q Treatments Start: 03/03/19 09:12 Freq: Status: Active Protocol: Document 03/29/19 09:47 RCC (Rec: 03/29/19 12:05 RCC [email or web address]) Gym Equipment Cable Column (Body Solid) Lat Pull Down Resistance 40 lbs Reps/Time x20 Rows Resistance 40 lbs Reps/Time x20 Therapeutic Exercises Prone Exercises I, T Side bilateral Reps/Minutes x10 Comments prone on table Sidelying Exercises shoulder abduction Side left Reps/Minutes x10 Standing Exercises wall slides Standing Exercise Name elbows bent 90 degrees, wall slides to 90 deg Side bilateral Resistance L1 band Reps/Minutes x10 Ball on wall circles Side bilateral Reps/Minutes x2 min each Manual Therapy Treatment Soft Tissue Mobilization UT/levator/pec Body Location Left Mobilization Type Myofascial Release Rolling Sustained Pressure Intensity/Depth Moderate Body Position Hooklying Joint Mobilizations ST Direction superior, lateral Grade III Body Position Sidelying Reps/Duration 6 min GH Direction posterior and inferior Grade III Body Position Hooklying Reps/Duration 6 min PT-OP-R Modalities Start: 03/03/19 09:12 Freq: Status: Active Protocol: Document 03/07/19 14:10 SA (Rec: 03/07/19 14:10 SA [email or web address]) Hot Pack/Cold Pack Treatment Hot Pack Location L shoulder Patient Position Hooklying Treatment Duration (minutes) 10 Patient Tolerance Good PT-OP-T Assessment and Plan Start: 03/03/19 09:12 Freq: Status: Active Protocol: Document 03/29/19 09:47 [facility] (Rec: 03/29/19 12:05 RCC [email or web address]) Physical Therapy Assessment Assessment Summary Assessment Pt requires tactile cuing for UT inhibition with scapular strengthening, which demonstrates impaired scapular stability and strength bilaterally. Pt tolerated SL abduction without c/o pain today. Physical Therapy Plan Frequency and Duration Frequency of Treatment 2x/Week Duration of Treatment 8 weeks Plan of Care Start Date 03/02/19 Plan of Care End Date 04/27/19 Next Visit Focus/Plan Next Note Type Treatment Note Next Visit Plan prog. scapulohumeral rhythm and strengthening of shoulder girdle.
--- NOTE | 2019-03-31 09:48 | PT.OTN ---
Current Diagnoses Primary osteoarthritis, left shoulder (03/31/19) Physical Therapy Treatment Note PT-OP-A Visit Information Start: 03/03/19 09:12 Freq: Status: Active Protocol: Document 03/31/19 09:48 RCC (Rec: 03/31/19 10:31 RCC [email or web address]) Out-Patient Physical Therapy Visit Information Visit Information Visit Type Treatment Note Visit Start Time 09:48 Visit Stop Time 10:28 Total Visit Minutes 40 Visit Number 7 Number of MESS COOK Visits 0 Evaluation Information Evaluation Date 03/02/19 PT-OP-B Current Condition Start: 03/03/19 09:12 Freq: Status: Active Protocol: Document 03/02/19 14:35 RCC (Rec: 03/03/19 11:00 RCC [email or web address]) Current Condition History of Current Condition Onset Date Winter 2017 Current Complaints L shoulder pain, B hand pain History of Current Condition Pt is a 68 y/o male presenting to physical therapy with a c/ o L shoulder pain, onset in the winter of unknown reason (denies any EMBER). Pt states that overhead activity is challenging, typically his L shoulder is more stiff in the morning compared to the afternoon and evening. He is taking Aleve which does help with pain. His hands also flare up on him occasionally, bilateral pain in the thumb region he states mostly when working with his hands a lot. 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 Radiograph of L shoulder showed moderate AC and GH joint degeneration. 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 L hand howed moderate to severe degenerative changes of the L hand most pronounced at the tumb and index (basal joint of thumb and distal IP joint of index finger), most compatible with OA. Pt would like to address his L shoulder, as this is the most limiting at this time. Treatment Goals Patient/Caregiver Goals decrease pain, improve ROM and overall UE function, be able to play golf Current Functional Impairments (Reported) Functional Limitations- Recreation/ has not played golf due to Hobbies pain in L shoulder PT-OP-C Subjective Start: 03/03/19 09:12 Freq: Status: Active Protocol: Document 03/31/19 09:48 RCC (Rec: 03/31/19 10:31 RCC [email or web address]) OP-PT Subjective Patient Comments Patient Comments Pt admits his L shoulder is sore after PT, but no increased pain. His only pain really now is when his arms are way up over head. PT-OP-F Manual Assessment Start: 03/03/19 09:12 Freq: Status: Active Protocol: Document 03/02/19 14:35 RCC (Rec: 03/03/19 13:20 RCC [email or web address]) Manual Assessments Soft Tissue Assessment Soft Tissue Mobility Assessment moderate tone upper trapezius bilaterally; mild tone R teres minor, infraspinatus Joint Mobility Assessment Joint Mobility Assessment hypomobile GH joint on the L with inferior and posterior glides PT-OP-H Neuro Start: 03/03/19 09:12 Freq: Status: Active Protocol: Document 03/02/19 14:35 RCC (Rec: 03/03/19 13:20 RCC [email or web address]) Sensation Evaluation Gross Sensation Gross Sensation WNL Deep Tendon Reflex & Clonus Assessment Deep Tendon Reflex Bilateral Tricep Deep Tendon Reflex 1+ Diminished Bilateral Brachioradialis Deep Tendon Reflex 2+ Normal Bilateral Bicep Deep Tendon Reflex 2+ Normal PT-OP-J Posture/Palpation/Skin Start: 03/03/19 09:12 Freq: Status: Active Protocol: Document 03/02/19 14:35 RCC (Rec: 03/03/19 13:20 RCC [email or web address]) Posture Evaluation Comments Posture Comments moderate rounded shoulders, flattened cervical spine, thoracic kyphosis (mild increase) PT-OP-K Range of Motion Start: 03/03/19 09:12 Freq: Status: Active Protocol: Document 03/02/19 14:35 RCC (Rec: 03/03/19 13:20 RCC [email or web address]) Shoulder Goniometric Range of Motion Shoulder Measured in Degrees Right Active Testing Position Sitting Flexion 160 Abduction 170 External Rotation at 90 degrees 90 Abduction Internal Rotation 67 Left Active Testing Position Sitting Flexion 160 Abduction 160 External Rotation at 90 degrees 80 Abduction Internal Rotation 60 PT-OP-L Special Tests Start: 03/03/19 09:12 Freq: Status: Active Protocol: Document 03/02/19 14:35 RCC (Rec: 03/03/19 13:20 RCC [email or web address]) Special Tests Cervical Spine Special Tests Foraminal Compression Test Results negative B Spurling's Test Test Results negative B Shoulder Special Tests Drop Arm Rotator Cuff Test Results negative B Empty Can Test Results negative B Lift-Off Rotator Cuff Test Results negative B Ibrahim John Impingement Test Results positive L Hornblowers Sign Test Results negative B Load and Shift Test Results negative B PT-OP-M Strength Start: 03/03/19 09:12 Freq: Status: Active Protocol: Document 03/02/19 14:35 RCC (Rec: 03/03/19 13:20 RCC [email or web address]) Shoulder Strength Shoulder Manual Muscle Testing Right Flexion 4+ Good+ Abduction (C5) 4+ Good+ External Rotation 5 Normal Internal Rotation 5 Normal Left Flexion 4 Good Abduction (C5) 4 Good External Rotation 4+ Good+ Internal Rotation 5 Normal Elbow/Forearm Strength Elbow and Forearm Manual Muscle Testing Right Flexion (C6) 5 Normal Extension (C7) 5 Normal Left Flexion (C6) 5 Normal Extension (C7) 5 Normal Hand Tour Bus Driver/Pinch Strength Hand Dominance Hand Dominance Right Hand Strength Right Tour Bus Driver (lbs) 46 Left Tour Bus Driver (lbs) 42 PT-OP-Q Treatments Start: 03/03/19 09:12 Freq: Status: Active Protocol: Document 03/31/19 09:48 RCC (Rec: 03/31/19 10:31 RCC [email or web address]) Therapeutic Exercises Sitting Exercises Shldr Pulleys Sitting Exercise Name Scaption/Abduction Side bilateral Reps/Minutes 3 min Standing Exercises body blade Standing Exercise Name yellow Side left Equipment Used body blade Reps/Minutes 5 min Comments IR/ER, abd/add with arm @ side IR Side left Resistance L2 Reps/Minutes x20 Manual Therapy Treatment Soft Tissue Mobilization UT/levator/pec Body Location Left Mobilization Type Myofascial Release Rolling Sustained Pressure Intensity/Depth Moderate Body Position Hooklying Joint Mobilizations ST Direction superior, lateral Grade III Body Position Sidelying Reps/Duration 8 min GH Direction posterior and inferior Grade III Body Position Hooklying Reps/Duration 6 min Taping L shoulder Type of Tape kinesiotape Skin Inspection intact Comments shoulder impingement protocol PT-OP-R Modalities Start: 03/03/19 09:12 Freq: Status: Active Protocol: Document 03/07/19 14:10 SA (Rec: 03/07/19 14:10 SA [email or web address]) Hot Pack/Cold Pack Treatment Hot Pack Location L shoulder Patient Position Hooklying Treatment Duration (minutes) 10 Patient Tolerance Good PT-OP-T Assessment and Plan Start: 03/03/19 09:12 Freq: Status: Active Protocol: Document 03/31/19 09:48 RCC (Rec: 03/31/19 10:31 RCC [email or web address]) Physical Therapy Assessment Assessment Summary Assessment Pt with less pain in ER position vs IR position bilaterally in the shoulders with elevation. Pt no longer with significant winging of the L shoulder blade. Pt is progressing as expected, likely d/c in next 1-2 weeks if no issues arise. Physical Therapy Plan Frequency and Duration Frequency of Treatment 2x/Week Duration of Treatment 8 weeks Plan of Care Start Date 03/02/19 Plan of Care End Date 04/27/19 Next Visit Focus/Plan Next Note Type Treatment Note Next Visit Plan prone I, T, Y; scapular strengthening
--- NOTE | 2019-04-05 09:45 | PT.OTN ---
Current Diagnoses Primary osteoarthritis, left shoulder (04/05/19) Physical Therapy Treatment Note PT-OP-A Visit Information Start: 03/03/19 09:12 Freq: Status: Active Protocol: Document 04/05/19 09:45 RCC (Rec: 04/06/19 09:23 RCC [email or web address]) Out-Patient Physical Therapy Visit Information Visit Information Visit Type Treatment Note Visit Start Time 09:45 Visit Stop Time 10:28 Total Visit Minutes 43 Visit Number 8 Number of WINDOW GLAZIER Visits 0 Evaluation Information Evaluation Date 03/02/19 PT-OP-B Current Condition Start: 03/03/19 09:12 Freq: Status: Active Protocol: Document 03/02/19 14:35 RCC (Rec: 03/03/19 11:00 RCC [email or web address]) Current Condition History of Current Condition Onset Date Winter 2017 Current Complaints L shoulder pain, B hand pain History of Current Condition Pt is a 68 y/o male presenting to physical therapy with a c/ o L shoulder pain, onset in the winter of unknown reason (denies any EMBER). Pt states that overhead activity is challenging, typically his L shoulder is more stiff in the morning compared to the afternoon and evening. He is taking Aleve which does help with pain. His hands also flare up on him occasionally, bilateral pain in the thumb region he states mostly when working with his hands a lot. 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 Radiograph of L shoulder showed moderate AC and GH joint degeneration. 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 L hand howed moderate to severe degenerative changes of the L hand most pronounced at the tumb and index (basal joint of thumb and distal IP joint of index finger), most compatible with OA. Pt would like to address his L shoulder, as this is the most limiting at this time. Treatment Goals Patient/Caregiver Goals decrease pain, improve ROM and overall UE function, be able to play golf Current Functional Impairments (Reported) Functional Limitations- Recreation/ has not played golf due to Hobbies pain in L shoulder PT-OP-C Subjective Start: 03/03/19 09:12 Freq: Status: Active Protocol: Document 04/05/19 09:45 RCC (Rec: 04/06/19 09:23 RCC [email or web address]) OP-PT Subjective Patient Comments Patient Comments Pt reports he did some yard work earlier today and had less shoulder pain with increased activity than when he first started PT. Patient Reported Progress Improving PT-OP-F Manual Assessment Start: 03/03/19 09:12 Freq: Status: Active Protocol: Document 03/02/19 14:35 RCC (Rec: 03/03/19 13:20 RCC [email or web address]) Manual Assessments Soft Tissue Assessment Soft Tissue Mobility Assessment moderate tone upper trapezius bilaterally; mild tone R teres minor, infraspinatus Joint Mobility Assessment Joint Mobility Assessment hypomobile GH joint on the L with inferior and posterior glides PT-OP-H Neuro Start: 03/03/19 09:12 Freq: Status: Active Protocol: Document 03/02/19 14:35 RCC (Rec: 03/03/19 13:20 RCC [email or web address]) Sensation Evaluation Gross Sensation Gross Sensation WNL Deep Tendon Reflex & Clonus Assessment Deep Tendon Reflex Bilateral Tricep Deep Tendon Reflex 1+ Diminished Bilateral Brachioradialis Deep Tendon Reflex 2+ Normal Bilateral Bicep Deep Tendon Reflex 2+ Normal PT-OP-J Posture/Palpation/Skin Start: 03/03/19 09:12 Freq: Status: Active Protocol: Document 03/02/19 14:35 RCC (Rec: 03/03/19 13:20 RCC [email or web address]) Posture Evaluation Comments Posture Comments moderate rounded shoulders, flattened cervical spine, thoracic kyphosis (mild increase) PT-OP-K Range of Motion Start: 03/03/19 09:12 Freq: Status: Active Protocol: Document 03/02/19 14:35 RCC (Rec: 03/03/19 13:20 RCC [email or web address]) Shoulder Goniometric Range of Motion Shoulder Measured in Degrees Right Active Testing Position Sitting Flexion 160 Abduction 170 External Rotation at 90 degrees 90 Abduction Internal Rotation 67 Left Active Testing Position Sitting Flexion 160 Abduction 160 External Rotation at 90 degrees 80 Abduction Internal Rotation 60 PT-OP-L Special Tests Start: 03/03/19 09:12 Freq: Status: Active Protocol: Document 03/02/19 14:35 RCC (Rec: 03/03/19 13:20 RCC [email or web address]) Special Tests Cervical Spine Special Tests Foraminal Compression Test Results negative B Spurling's Test Test Results negative B Shoulder Special Tests Drop Arm Rotator Cuff Test Results negative B Empty Can Test Results negative B Lift-Off Rotator Cuff Test Results negative B Ibrahim John Impingement Test Results positive L Hornblowers Sign Test Results negative B Load and Shift Test Results negative B PT-OP-M Strength Start: 03/03/19 09:12 Freq: Status: Active Protocol: Document 03/02/19 14:35 RCC (Rec: 03/03/19 13:20 RCC [email or web address]) Shoulder Strength Shoulder Manual Muscle Testing Right Flexion 4+ Good+ Abduction (C5) 4+ Good+ External Rotation 5 Normal Internal Rotation 5 Normal Left Flexion 4 Good Abduction (C5) 4 Good External Rotation 4+ Good+ Internal Rotation 5 Normal Elbow/Forearm Strength Elbow and Forearm Manual Muscle Testing Right Flexion (C6) 5 Normal Extension (C7) 5 Normal Left Flexion (C6) 5 Normal Extension (C7) 5 Normal Hand Senior Chemical Engineer/Pinch Strength Hand Dominance Hand Dominance Right Hand Strength Right Senior Chemical Engineer (lbs) 46 Left Senior Chemical Engineer (lbs) 42 PT-OP-Q Treatments Start: 03/03/19 09:12 Freq: Status: Active Protocol: Document 04/05/19 09:45 RCC (Rec: 04/06/19 09:23 RCC [email or web address]) Gym Equipment Cable Column (Body Solid) Lat Pull Down Resistance 40 lbs Reps/Time x20 Therapeutic Exercises Prone Exercises I, T Side bilateral Reps/Minutes x10 Comments prone on table Sidelying Exercises shoulder abduction Side left Reps/Minutes x10 Sitting Exercises Shldr Pulleys Sitting Exercise Name Scaption/Abduction Side bilateral Reps/Minutes 4 min Standing Exercises horiz. abduction Side bilateral Resistance L2 Reps/Minutes x15 IR Side left Resistance L2 Reps/Minutes x20 Shld EXT Side left Resistance TB LV 2 Reps/Minutes 20x ER Side bilateral Resistance TB LV 2 Reps/Minutes 20x Comments tactile cuing Manual Therapy Treatment Soft Tissue Mobilization UT/levator/pec Body Location Left Mobilization Type Myofascial Release Rolling Sustained Pressure Intensity/Depth Moderate Body Position Hooklying Joint Mobilizations ST Direction superior, lateral Grade III Body Position Sidelying Reps/Duration 6 min PT-OP-R Modalities Start: 03/03/19 09:12 Freq: Status: Active Protocol: Document 03/07/19 14:10 SA (Rec: 03/07/19 14:10 SA [email or web address]) Hot Pack/Cold Pack Treatment Hot Pack Location L shoulder Patient Position Hooklying Treatment Duration (minutes) 10 Patient Tolerance Good PT-OP-T Assessment and Plan Start: 03/03/19 09:12 Freq: Status: Active Protocol: Document 04/05/19 09:45 RCC (Rec: 04/06/19 09:23 RCC [email or web address]) Physical Therapy Assessment Assessment Summary Assessment Pt without pain with therapeutic exercise today. He appears to be improving with sleep and house work related tasks. Physical Therapy Plan Frequency and Duration Frequency of Treatment 2x/Week Duration of Treatment 8 weeks Plan of Care Start Date 03/02/19 Plan of Care End Date 04/27/19 Next Visit Focus/Plan Next Note Type Treatment Note Next Visit Plan reassess obj measures
--- NOTE | 2019-04-07 09:45 | PT.OTN ---
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 Pt states that overhead activity is challenging, typically his L shoulder is more stiff in the morning compared to the afternoon and evening. He is taking Aleve which does help with pain. His hands also flare up on him occasionally, bilateral pain in the thumb region he states mostly when working with his hands a lot. 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 Radiograph of L shoulder showed moderate AC and GH joint degeneration. 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 L hand howed moderate to severe degenerative changes of the L hand most pronounced at the tumb and index (basal joint of thumb and distal IP joint of index finger), most compatible with OA. Pt would like to address his L shoulder, as this is the most limiting at this time. Treatment Goals Patient/Caregiver Goals decrease pain, improve ROM and overall UE function, be able to play golf Current Functional Impairments (Reported) Functional Limitations- Recreation/ has not played golf due to Hobbies pain in L shoulder PT-OP-C Subjective Start: 03/03/19 09:12 Freq: Status: Active Protocol: Document 04/07/19 09:45 RCC (Rec: 04/07/19 12:51 RCC [email or web address]) OP-PT Subjective Patient Comments Patient Comments pt fell hiking yesterday, landing on the R hand causing mild anterior shoulder pain. OP-PT Pain Assessment Location L anterior and superior shoulder Intensity 2 Scale Used Numeric (1 - 10) Description Aching Tightness With Movement Frequency Intermittent Pain Aggravating Factors Lifting Pain Alleviating Factors Medication PT-OP-F Manual Assessment Start: 03/03/19 09:12 Freq: Status: Active Protocol: Document 03/02/19 14:35 RCC (Rec: 03/03/19 13:20 RCC [email or web address]) Manual Assessments Soft Tissue Assessment Soft Tissue Mobility Assessment moderate tone upper trapezius bilaterally; mild tone R teres minor, infraspinatus Joint Mobility Assessment Joint Mobility Assessment hypomobile GH joint on the L with inferior and posterior glides PT-OP-H Neuro Start: 03/03/19 09:12 Freq: Status: Active Protocol: Document 03/02/19 14:35 RCC (Rec: 03/03/19 13:20 RCC [email or web address]) Sensation Evaluation Gross Sensation Gross Sensation WNL Deep Tendon Reflex & Clonus Assessment Deep Tendon Reflex Bilateral Tricep Deep Tendon Reflex 1+ Diminished Bilateral Brachioradialis Deep Tendon Reflex 2+ Normal Bilateral Bicep Deep Tendon Reflex 2+ Normal PT-OP-J Posture/Palpation/Skin Start: 03/03/19 09:12 Freq: Status: Active Protocol: Document 03/02/19 14:35 RCC (Rec: 03/03/19 13:20 RCC [email or web address]) Posture Evaluation Comments Posture Comments moderate rounded shoulders, flattened cervical spine, thoracic kyphosis (mild increase) PT-OP-K Range of Motion Start: 03/03/19 09:12 Freq: Status: Active Protocol: Document 04/07/19 09:45 RCC (Rec: 04/07/19 12:51 RCC [email or web address]) Shoulder Goniometric Range of Motion Shoulder Measured in Degrees Left Active Testing Position Sitting Flexion 170 Abduction 170 External Rotation at 90 degrees 90 Abduction Internal Rotation 65 PT-OP-L Special Tests Start: 03/03/19 09:12 Freq: Status: Active Protocol: Document 03/02/19 14:35 RCC (Rec: 03/03/19 13:20 RCC [email or web address]) Special Tests Cervical Spine Special Tests Foraminal Compression Test Results negative B Spurling's Test Test Results negative B Shoulder Special Tests Drop Arm Rotator Cuff Test Results negative B Empty Can Test Results negative B Lift-Off Rotator Cuff Test Results negative B Ibrahim John Impingement Test Results positive L Hornblowers Sign Test Results negative B Load and Shift Test Results negative B PT-OP-M Strength Start: 03/03/19 09:12 Freq: Status: Active Protocol: Document 04/07/19 09:45 RCC (Rec: 04/07/19 12:51 RCC [email or web address]) Shoulder Strength Shoulder Manual Muscle Testing Right Flexion 5 Normal Abduction (C5) 5 Normal External Rotation 5 Normal Internal Rotation 5 Normal Left Flexion 5 Normal Abduction (C5) 4+ Good+ External Rotation 5 Normal Internal Rotation 5 Normal PT-OP-Q Treatments Start: 03/03/19 09:12 Freq: Status: Active Protocol: Document 04/07/19 09:45 RCC (Rec: 04/07/19 12:51 RCC [email or web address]) Therapeutic Exercises Sidelying Exercises shoulder abduction Side left Reps/Minutes x10 Sitting Exercises shoulder flexion and abduction Side left Resistance L2 Reps/Minutes x10 each Standing Exercises horiz. abduction Side bilateral Resistance L2 Reps/Minutes x15 Shld EXT Side left Resistance TB LV 2 Reps/Minutes 20x ER Side bilateral Resistance TB LV 2 Reps/Minutes 20x Comments tactile cuing Manual Therapy Treatment Soft Tissue Mobilization UT/levator/pec Body Location Left Mobilization Type Myofascial Release Rolling Sustained Pressure Intensity/Depth Moderate Body Position Hooklying Joint Mobilizations ST Direction superior, lateral Grade III Body Position Sidelying Reps/Duration 6 min Taping L shoulder Type of Tape kinesiotape Skin Inspection intact Comments shoulder impingement protocol PT-OP-R Modalities Start: 03/03/19 09:12 Freq: Status: Active Protocol: Document 03/07/19 14:10 SA (Rec: 03/07/19 14:10 SA [email or web address]) Hot Pack/Cold Pack Treatment Hot Pack Location L shoulder Patient Position Hooklying Treatment Duration (minutes) 10 Patient Tolerance Good PT-OP-T Assessment and Plan Start: 03/03/19 09:12 Freq: Status: Active Protocol: Document 04/07/19 09:45 RCC (Rec: 04/07/19 12:51 RCC [email or web address]) Physical Therapy Assessment Goals Recreational and work tasks Impairment unable to golf Survey Technician Goal (LTG) Pt will return to golf and work related tasks with 1/10 or less pain in L shoulder prior to d/c. 04/07/19: good progress. LTG Duration 8 weeks L shoulder ROM Impairment L shoulder AROM Survey Technician Goal (LTG) L shoulder AROM abduction to 170 deg, IR to 65 deg, and ER to 90 deg prior to d/c. LTG Duration achieved 04/07/19 UE strength Impairment weakness in bilateral shoulders, L>R Short Term Goal (STG) 4+/5 or greater with shoulder flexion, abduction, IR and ER bilaterally with manual muscle testing. STG Duration achieved 04/07/19 Survey Technician Goal (LTG) 5/5 rated strength with shoulder flexion, abduction, IR and ER bilaterally with manual muscle testing. 04/07/19: good progress LTG Duration 8 weeks Quick DASH Impairment Quick DASH disability score 31 .81 Short Term Goal (STG) pt will have disability score of 20 or less on the Quick DASH to demonstrate improvements with functional use of LUE. STG Duration achieved 04/07/19 Survey Technician Goal (LTG) pt will have disability score of 12 or less on the Quick DASH to demonstrate improvements with functional use of LUE. 04/07/19: good progress LTG Duration 8 weeks Progress Towards Goals Progress Towards Goals Progressing Toward Goals Assessment Summary Assessment Pt has met goals of AROM WNL of the LUE without c/o L shoulder pain. He has improved to working around his home without c/o increased pain, but not yet back to golfing. Pt's QuickDASH score lowered to 20, which demonstrates improvements with overall function of the LUE. The pt is leaving this weekend for 2 months to work in [place], therefore will be d/c at this time. Pt has a HEP established and has a good understanding of this. Pain is down to 1-2/ 10. He fell on the L shoulder yesterday but strength and ROM are WNL, no concerns of muscular tear d/t fall. Physical Therapy Plan Discharge Physical Therapy Discharge Reasons Patient Request Discharge Comments pt leaving [facility] [address] in 2 days.
== END 2019-04-21 11:15 | disposition home or self-care (01) ==
LOC: PHYS 09:45
PROVIDERS: PCP Internal Medicine; Visit Provider Internal Medicine
DX: M19.012 Primary osteoarthritis, left shoulder (principal)
CPT/HCPCS: 97110; 97140; 97161

== ENCOUNTER → 2019-09-23 09:37 | Outpatient (CLI) | payer MEDICARE, OTHER, SELFPAY ==
[2019-09-23 10:35] LABS: Alanine Aminotransferase 81 IU/L (<50); Aspartate Aminotransferase 71 IU/L (17-59); Blood Urea Nitrogen 18 mg/dL (9-20); Calcium 9.3 mg/dL (8.4-10.2); Carbon Dioxide 25 mmol/L (22-32); Chloride 103 mmol/L (98-107); Cholesterol 164 mg/dL (140-199); Estimated Glomerular Filt Rate > 60.0 mL/min (>60); Glucose 128 mg/dL (80-110); HDL Cholesterol 50 mg/dL (40-60); HEMOLYSIS < 15 (0-50); LDL Cholesterol Calculated 98 mg/dL (<100); Potassium 4.3 mmol/L (3.4-5.1); Sodium 135 mmol/L (137-145); Triglycerides 81 mg/dL (35-150)
== END ==
PROVIDERS: PCP Internal Medicine; Visit Provider Internal Medicine
DX: R94.5 Abnormal results of liver function studies (principal); E78.2 Mixed hyperlipidemia; M13.0 Polyarthritis, unspecified
CPT/HCPCS: 36415; 80048; 80061; 84450; 84460

== ENCOUNTER → 2019-10-09 07:43 | Outpatient (CLI) | payer MEDICARE, OTHER, SELFPAY ==
--- NOTE | 2019-10-09 | DI.US.S_ITS ---
PROCEDURE: US ABDOMEN LIMITED INDICATIONS: ABNORMAL LEVELS OF OTHER SERUM ENZYMES TECHNIQUE: Real-time focused scanning was performed of the abdomen, with image documentation. COMPARISON: None. FINDINGS: Liver is diffusely increased in echogenicity. No focal hepatic abnormalities identified. Normal hepatic size. Focal fatty sparing adjacent to the gallbladder. Exophytic right renal cyst measuring 2.2 cm. IMPRESSION: 1. Increased hepatic echogenicity noted possibly related to hepatic steatosis but other sources of hepatocellular disease including hepatic cirrhosis cannot be excluded. Recommend clinical correlation. 2. 2.2 cm exophytic right renal cyst. Dictated by: Bert SÁNCHEZ Interpreted: Higinio Lomas MD on 10/09/2019 at 9:08 Approved by: Higinio Lomas M.D. on 10/09/2019 at 13:26
== END ==
PROVIDERS: PCP Internal Medicine; Visit Provider Internal Medicine
DX: R74.8 Abnormal levels of other serum enzymes (principal); N28.1 Cyst of kidney, acquired
CPT/HCPCS: 76705

== ENCOUNTER → 2019-10-28 10:55 | Outpatient (CLI) | payer MEDICARE, OTHER, SELFPAY ==
[2019-10-28 12:53] LABS: Alanine Aminotransferase 71 IU/L (<50); Albumin 4.4 g/dL (3.5-5.0); Albumin Globulin Ratio 1.8 (1.0-2.8); Alkaline Phosphatase 102 U/L (38-126); Aspartate Aminotransferase 56 IU/L (17-59); Bilirubin Total 0.6 mg/dL (0.2-1.3); Bilirubin Unconjugated 0.5 mg/dL (0.0-1.1); Globulin 2.4 g/dL (1.7-4.1); HEMOLYSIS < 15 (0-50); Total Protein 6.8 g/dL (6.3-8.2)
[2019-10-28 13:18] LABS: Prostate Specific Antigen Scrn 1.95 ng/mL (0.1-4.0)
== END ==
PROVIDERS: PCP Internal Medicine; Visit Provider Internal Medicine
DX: R74.8 Abnormal levels of other serum enzymes (principal); Z00.00 Encounter for general adult medical examination without abnormal findings; Z12.5 Encounter for screening for malignant neoplasm of prostate
CPT/HCPCS: 36415; 80076; G0103

== ENCOUNTER → 2020-10-14 10:02 | Outpatient (CLI) | payer MEDICARE, OTHER, SELFPAY ==
[2020-10-14 11:56] LABS: Cholesterol 165 mg/dL (140-199); HDL Cholesterol 44 mg/dL (40-60); LDL Cholesterol Calculated 89 mg/dL (<100); Triglycerides 161 mg/dL (35-150)
[2020-10-15 12:03] LABS: Alanine Aminotransferase 85 IU/L (<50); Albumin 4.3 g/dL (3.5-5.0); Albumin Globulin Ratio 1.5 (1.0-2.8); Alkaline Phosphatase 97 U/L (38-126); Aspartate Aminotransferase 79 IU/L (17-59); Bilirubin Total 0.6 mg/dL (0.2-1.3); Blood Urea Nitrogen 22 mg/dL (9-20); Calcium 9.5 mg/dL (8.4-10.2); Carbon Dioxide 25 mmol/L (22-32); Chloride 106 mmol/L (98-107); Estimated Glomerular Filt Rate > 60.0 mL/min (>60); Globulin 2.8 g/dL (1.7-4.1); Glucose 120 mg/dL (80-110); HEMOLYSIS < 15 (0-50); Potassium 4.7 mmol/L (3.4-5.1); Sodium 137 mmol/L (137-145); Total Protein 7.1 g/dL (6.3-8.2)
[2020-10-15 12:33] LABS: Prostate Specific Antigen 1.55 ng/mL (0.10-4.00)
== END ==
PROVIDERS: PCP Internal Medicine; Referring Provider Internal Medicine; Visit Provider Internal Medicine
DX: Z12.5 Encounter for screening for malignant neoplasm of prostate (principal); E78.2 Mixed hyperlipidemia
CPT/HCPCS: 36415; 80053; 80061; 84153; G0103

== ENCOUNTER → 2020-10-15 14:45 | Outpatient (ROUT) | payer MEDICARE, OTHER, SELFPAY ==
[2020-10-15 14:58] LABS: Add Manual Diff / Slide Review NO; Basophils Absolute Auto 100 /uL (0-100); Basophils Percent Auto 0.9 % (0-2); Eosinophils Absolute Auto 300 /uL (0-450); Eosinophils Percent Auto 4.2 % (2-4); Hematocrit 47.8 % (41-53); Hemoglobin 16.3 g/dL (13.5-17.5); Lymphocytes Absolute Auto 2400 /uL (1100-4500); Lymphocytes Percent Auto 31.4 % (25-40); Mean Corpuscular HGB Conc 34.1 % (30-36); Mean Corpuscular Hemoglobin 30.7 PG (26-34); Mean Corpuscular Volume 90.1 fL (80-100); Monocytes Absolute Auto 500 /uL (0-900); Monocytes Percent Auto 7.2 % (3-14); Neutrophils Absolute Auto 4200 /uL (1500-7000); Neutrophils Percent Auto 56.3 % (50-75); Platelet Count 182 X10^3/uL (150-400); Red Cell Distribution Width 12.9 % (11.6-14.8); White Blood Cell Count 7.5 X10^3/uL (4.5-11.0)
== END ==
PROVIDERS: PCP Internal Medicine; Visit Provider Internal Medicine
DX: M15.0 Primary generalized (osteo)arthritis (principal)
CPT/HCPCS: 85025

== ENCOUNTER → 2020-12-06 14:38 | Outpatient (CLI) | payer MEDICARE, OTHER, SELFPAY ==
--- NOTE | 2020-12-06 | DI.US.S_ITS ---
PROCEDURE: US SCROTUM INDICATIONS: SCROTAL SWELLING TECHNIQUE: Real-time scanning was performed of the scrotum and testicles, with image documentation. Color and pulse Doppler interrogation was performed of both testicles. COMPARISON: None. FINDINGS: Right: Testicle is normal in size at 4.9 x 2.6 x 1.9 cm, and homogenous in echotexture. Epididymis is normal in overall size and morphology. No hydrocele or varicoceles. Overlying scrotal skin is normal in thickness. Left: Testicle is normal in size at 4.9 x 2.5 x 2.7 cm, and homogeneous in echotexture. Epididymis is normal in overall size and morphology. Incidental note of a 3 mm left epididymal head cyst. No varicoceles. Overlying scrotal skin is normal in thickness. There is a large, simple appearing left-sided hydrocele measuring approximately 119 mL in volume. Doppler: Color and pulse Doppler demonstrate normal and symmetric arterial flow in both testicles. IMPRESSION: 1. Large, simple appearing left-sided hydrocele. 2. Normal sonographic appearance of the bilateral testicles without evidence for torsion. Dictated by: Donta Thomas M.D. on 12/07/2020 at 0:00 Approved by: Donta Thomas M.D. on 12/07/2020 at 0:02
== END ==
PROVIDERS: PCP Internal Medicine; Referring Provider Internal Medicine; Visit Provider Internal Medicine
DX: N50.89 Other specified disorders of the male genital organs (principal); N43.3 Hydrocele, unspecified
CPT/HCPCS: 76870

== ENCOUNTER → 2020-12-31 09:17 | Outpatient (CLI) | payer MEDICARE, OTHER, SELFPAY ==
[2020-12-31 11:39] LABS: COVID19 -Nasal RAPID Negative (Negative)
== END ==
PROVIDERS: PCP Internal Medicine; Visit Provider Specialist
DX: Z20.822 Contact with and (suspected) exposure to COVID-19 (principal)
CPT/HCPCS: 87635; C9803

== ENCOUNTER 2021-01-01 08:56 | Day surgery (SDC) | payer MEDICARE, OTHER, SELFPAY ==
[2021-01-01] VITALS (14 sets, daily range): BP systolic 107–149; BP diastolic 62–87; PULSE 66–89; RESP 10–18; TEMP 36.3–37.2; O2SAT 89–98; BMI 31.9
[2021-01-01] MEDS: LACTATED RINGERS 1,000 ML 42 ML IV (09:38)
[2021-01-01] MEDS: ACETAMINOPHEN 325 MG TABLET 975 MG PO (09:38)
--- NOTE | 2021-01-01 09:46 | PM.PREOP ---
Pre-operative Note COVID-19 COVID-19 status: Negative Result date/Date tested (Pos, Neg/Pending): 12/31/20 Interval Note History & Physical reviewed/Exam performed by Physician: Yes Changes to H&P: No
[2021-01-01] MEDS: CEFAZOLIN 2 GM/100 ML FROZ.PIGGY IV (10:10)
--- NOTE | 2021-01-01 10:28 | SUR.OPER ---
Supine on padded OR bed, head on pillow, arms secured on padded arm boards at <90 degrees abduction, legs uncrossed, safety belt at thigh, tape over blanket over lower legs.
[2021-01-01] MEDS: BUPIVACAINE 0.5% W/ EPI (PF) 30 ML VIAL INJ (10:34)
[2021-01-01] MEDS: LIDOCAINE 1% 30 ML INJ (11:00)
--- NOTE | 2021-01-01 12:04 | P.OP_ITS ---
Operative Date/Time/Diagnoses Date of procedure: 01/01/21 Time of procedure: 12:04 Pre-op diagnosis: Left hydrocele. Possible left hernia. Post-op diagnosis: same (Left lipoma of the cord) Procedure & Clinicians Procedure: Hydrocelectomy. Plug and patch repair of weakness caused by the large lipoma of the cord Same procedure as scheduled: Yes Indications: Carlos symptomatic left hydrocele. Surgeon: Tone Dumont Click Yes if Unassisted: Yes Anesthesia Type: General Operative Notes Findings: Large lipoma of the cord. Causing weakness of the floor/essentially a direct hernia. Large hydrocele. Elevated left testicle. Closure Type: primary Specimen(s): none sent Prosthetic devices, grafts, tissues, transplants, or devices: Small plug and patch Estimated Blood Loss (mL): 5 Procedure in detail: The patient was placed supine on the operating room table and underwent general LMA anesthesia. He was prepped and draped in the usual fashion. A transverse incision was made overlying the left internal ring and carried down to the level of the external oblique. The external oblique was opened parallel with its fibers through the external ring. The cord structures were elevated. The cremaster was opened proximally and search made for an indirect sac. A large lipoma of the cord was identified and from the cord structures. It was ligated at the level the deep epigastric vessels and the distal portion removed. There was no indirect sac found.. The floor was examined and was found to be weakened due to this large lipoma of the cord. A small plug was placed in the defect created by the lipoma. Attention was turned to the hydrocele. Applying pressure to the inferior scrotum I was able to deliver the upper edge of the hydrocele into the wound. Small opening was made and was decompressed. Pulling on the wall to deliver the wall into the visible field resulted in the patient becoming bradycardic. While he was given medication to combat this tension was released with no improvement. His pulse d ropped into the upper teens and compressions were begun. Very quickly the pulse returned(compressions were given for less than 30 seconds). Once the blood pressure and pulse reestablished I injected lidocaine without epinephrine into the cord in hopes of preventing a recurrence. The wall of the hydrocele was excised. The edge was sutured over with 3-0 Vicryl. I returned the testicle to the scrotum. Even with tension on the cord the testicle only went into the upper part of the scrotum. I suspect that most of what I was feeling in the scrotum was this tends hydrocele. I could not get the testicle to go any lower and it appeared to be in normal anatomic position. A patch was placed across the floor and tacked at the pubic tubercle, the posterior lamella of the anterior rectus sheath, the ilioinguinal ligament, and superior lateral to the cord. The opening was modified as necessary to prevent tight constriction of the cord. Sutures of 0 Ethibond were used to secure the mesh. The external oblique was closed with a running 3 0 Polysorb. The subcu was closed with interrupted 3 0 Polysorb. The skin was closed with a running 4 0 Polysorb subcuticular stitch and Steri-Strips. Dressing was applied, the patient was awakened, and the patient was taken to the recovery area in good condition. Once the drapes removed I pulled rather hard on the testicle in order to see if I could get it to go any further into the scrotum. I could feel that the cord structures were on tension but still the testicle would not move down further into the scrotum. Complications: none Post-operative Condition: stable Disposition: PACU Plan for aftercare: Follow-up in the office
[2021-01-01] MEDS: hydrOXYzine pamoate 25 MG CAPSULE PO (12:39)
[2021-01-01] MEDS: ONDANSETRON 4 MG/2 ML INJ IV (12:39)
[2021-01-01] MEDS: OXYCODONE IR 5 MG TABLET PO (12:39)
== END 2021-01-01 13:30 | disposition home or self-care (01) ==
PROVIDERS: PCP Internal Medicine; Referring Provider Specialist; Visit Provider Specialist
PROC: (CPT 55040; principal; 2021-01-01 10:15)
DX: N43.3 Hydrocele, unspecified (principal); D17.6 Benign lipomatous neoplasm of spermatic cord; K21.9 Gastro-esophageal reflux disease without esophagitis; E78.5 Hyperlipidemia, unspecified; I10 Essential (primary) hypertension
CPT/HCPCS: 55040; C1781; J0461; J0690; J1100; J1885; J2250; J2405; J2704; J3010

== ENCOUNTER → 2021-01-17 07:32 | Outpatient (CLI) | payer MEDICARE, OTHER, SELFPAY ==
[2021-01-17 08:38] LABS: Hemoglobin A1C% w Est Avg Glu 6.2 % (4.0-6.0)
[2021-01-17 09:47] LABS: Alanine Aminotransferase 35 IU/L (<50); Albumin 3.9 g/dL (3.5-5.0); Albumin Globulin Ratio 1.7 (1.0-2.8); Alkaline Phosphatase 123 U/L (38-126); Aspartate Aminotransferase 33 IU/L (17-59); Bilirubin Total 0.3 mg/dL (0.2-1.3); Bilirubin Unconjugated 0.3 mg/dL (0.0-1.1); Blood Urea Nitrogen 18 mg/dL (9-20); Calcium 9.4 mg/dL (8.4-10.2); Carbon Dioxide 27 mmol/L (22-32); Chloride 104 mmol/L (98-107); Cholesterol 153 mg/dL (140-199); Estimated Glomerular Filt Rate > 60.0 mL/min (>60); Globulin 2.3 g/dL (1.7-4.1); Glucose 143 mg/dL (80-110); HDL Cholesterol 43 mg/dL (40-60); HEMOLYSIS < 15 (0-50); LDL Cholesterol Calculated 77 mg/dL (<100); Potassium 4.5 mmol/L (3.4-5.1); Sodium 137 mmol/L (137-145); Total Protein 6.2 g/dL (6.3-8.2); Triglycerides 166 mg/dL (35-150)
[2021-01-18 05:41] LABS: PSA, Total 1.6 ng/mL (0.0-4.0)
== END ==
PROVIDERS: PCP Internal Medicine; Referring Provider Internal Medicine; Visit Provider Internal Medicine
DX: E78.2 Mixed hyperlipidemia (principal)
CPT/HCPCS: 36415; 80053; 80061; 80076; 83036; 84153; 84154

== ENCOUNTER → 2021-10-21 10:45 | Outpatient (CLI) | payer MEDICARE, OTHER, SELFPAY ==
[2021-10-21 11:48] LABS: Alanine Aminotransferase 52 IU/L (<50); Albumin 4.2 g/dL (3.5-5.0); Albumin Globulin Ratio 1.6 (1.0-2.8); Alkaline Phosphatase 82 U/L (38-126); Aspartate Aminotransferase 45 IU/L (17-59); Bilirubin Total 0.6 mg/dL (0.2-1.3); Blood Urea Nitrogen 16 mg/dL (9-20); Calcium 9.7 mg/dL (8.4-10.2); Carbon Dioxide 28 mmol/L (22-32); Chloride 105 mmol/L (98-107); Estimated Glomerular Filt Rate > 60.0 mL/min (>60); Globulin 2.7 g/dL (1.7-4.1); Glucose 130 mg/dL (80-110); HEMOLYSIS < 15 (0-50); Potassium 4.6 mmol/L (3.4-5.1); Sodium 136 mmol/L (137-145); Total Protein 6.9 g/dL (6.3-8.2)
[2021-10-21 11:59] LABS: Hemoglobin A1C% w Est Avg Glu 6.5 % (4.0-6.0)
== END ==
PROVIDERS: PCP Internal Medicine; Referring Provider Internal Medicine; Visit Provider Internal Medicine
DX: E11.9 Type 2 diabetes mellitus without complications (principal); K76.0 Fatty (change of) liver, not elsewhere classified; I10 Essential (primary) hypertension; M19.012 Primary osteoarthritis, left shoulder
CPT/HCPCS: 36415; 80053; 83036